=== PATIENT | female | born 1980 | race American Indian/Alaskan Native ===

== ENCOUNTER 2020-09-20 03:51 | Emergency (ER) | payer OTHER ==
[2020-09-20] MEDS ORDERED: Lidocaine 2% Viscous Solution 15 ML UD PO ONE (03:52)
[2020-09-20] MEDS ORDERED: Clindamycin HCl 150 MG Cap PO ONE (04:03)
[2020-09-20] MEDS ORDERED: Acetaminophen/HYDROcodone 325-10 MG Tab PO ONE (04:03)
[2020-09-20 04:08] VITALS: BP 147/97; PULSE 89
[2020-09-20] MEDS ORDERED: Lidocaine 2% Viscous Solution 15 ML UD ONE (04:10)
--- NOTE | 2020-09-20 04:10 | EDM.PDOC ---
ED HPI GENERAL MEDICAL PROBLEM - General Chief Complaint: ENT Problem Stated Complaint: TOOTH ACHE/INFECTION Time Seen by Provider: 09/20/20 04:06 Source of Information: Reports: Patient History Limitations: Reports: No Limitations - History of Present Illness INITIAL COMMENTS - FREE TEXT/NARRATIVE: c/o tooth pain was at clinic but doesn't have DDS appt till Monday. 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: Musculoskeletal History: Reports: None Neurological History: Reports: None Psychiatric History: Reports: Other (See Below) Other Psychiatric History: positive for THC and amphemtines previous screens Endocrine/Metabolic History: Reports: None Hematologic History: Reports: None Immunologic History: Reports: None Oncologic (Cancer) History: Reports: None Dermatologic History: Reports: Other (See Below) Other Dermatologic History: bruise right thigh - Infectious Disease History Infectious Disease History: Reports: None - Past Surgical History Head Surgeries/Procedures: Reports: None Social & Family History - Family History Family Medical History: No Pertinent Family History - Caffeine Use Caffeine Use: Reports: Coffee, Soda ED ROS ENT - Review of Systems Review Of Systems: Comprehensive ROS is negative, except as noted in HPI. ED EXAM, ENT - Physical Exam Exam: See Below Exam Limited By: Language Barrier General Appearance: Alert, WD/WN, Mild Distress, Moderate Distress, Other (crying) Ears: Hearing Grossly Normal Mouth/Throat: Dental Abcess, Dental Pain, Dental Tenderness, Other (extensive caries bilateral upper molars) Head: Atraumatic Neck: Non-Tender, Full Range of Motion Respiratory/Chest: No Respiratory Distress Cardiovascular: Regular Rate, Rhythm GI/Abdominal: Soft, Non-Tender (Female) Exam: Deferred Rectal (Female) Exam: Deferred Neurological: Alert, Oriented, Normal Cognition, Normal Gait, No Motor/Sensory Deficits Psychiatric: Tearful Skin: Warm, Dry, Normal Color Lymphatic: No Adenopathy Course - Orders/Labs/Meds Meds: Medications Discontinued Medications Generic Name Dose Route Start Last Admin Trade Name Juliet PRN Reason Stop Dose Admin Hydrocodone Bitart/Acetaminophen 1 tab 09/20/20 04:03 Brainard 325-10 Mg PO 09/20/20 04:04 ONETIME ONE Clindamycin HCl 300 mg 09/20/20 04:03 Cleocin PO 09/20/20 04:04 ONETIME ONE Departure - Departure Time of Disposition: 04:08 Disposition: Home, Self-Care 01 Condition: Good Clinical Impression: Dental abscess, Dental caries - Discharge Information Instructions: Dental Abscess, [id number] Additional Instructions: 1) avoid solid foods 2) have liquids or soft diet 3) see DENTIST next week rx given; clindamycin 300mg qid x 40 rx togo; lido viscous apply prn
== END 2020-09-20 04:17 | disposition home or self-care (01) ==
LOC: DL.ED 03:51
DX: K04.7 Periapical abscess without sinus (principal); K02.9 Dental caries, unspecified
CPT/HCPCS: 99282; 99283; A9270

== ENCOUNTER 2021-10-11 23:57 | Emergency (ER) | payer SELFPAY ==
[2021-10-12] MEDS ORDERED: MVI, Adult with Vitamin K 10 ML, Thiamine 100 MG, Folic Acid 1 MG in Lactated Ringers 1... IV ONE ×4 (00:35)
[2021-10-12 01:35] LABS: ANION GAP 19.5 mEq/L (7-13); CHLORIDE,CL 98 mmol/L (98-107); SODIUM,NA 134 mmol/L (136-145)
[2021-10-12 01:58] LABS: AMPHETAMINES,URINE POSITIVE (NEGATIVE); BARBITURATES,URINE NEGATIVE (NEGATIVE); BENZODIAZEPINE,URINE NEGATIVE (NEGATIVE); MDMA (ECSTASY), URINE POSITIVE (NEGATIVE); METHADONE,URINE NEGATIVE (NEGATIVE); METHAMPHETAMINES,URINE POSITIVE (NEGATIVE); OPIATES,URINE POSITIVE (NEGATIVE); OXYCODONE,URINE NEGATIVE (NEGATIVE); PHENCYCLIDINE,URINE NEGATIVE (NEGATIVE); TCA,URINE NEGATIVE (NEGATIVE)
[2021-10-12 03:59] VITALS: BP 128/75; PULSE 94
[2021-10-12] MEDS ORDERED: Ferrous Sulfate 325 MG Tab PO ONE (04:07)
[2021-10-12] MEDS ORDERED: cefTRIAXone 500 MG Vial IM ONE (04:08)
[2021-10-12] MEDS ORDERED: Doxycycline Monohydrate 100 MG Cap PO ONE (04:09)
[2021-10-12] MEDS ORDERED: Lidocaine 1% 30 ML SDV ONE (04:16)
[2021-10-12 04:36] LABS: CORONAVIRUS COVID-19 NAA NEGATIVE (NEGATIVE)
[2021-10-13 12:47] LABS: C.TRACHOMATIS BY TMA Negative (Negative); N.GONORRHOEAE BY TMA Negative (Negative)
== END 2021-10-12 05:40 | disposition home or self-care (01) ==
LOC: DL.ED 23:57
DX: T74.21XA Adult sexual abuse, confirmed, initial encounter (principal); N73.9 Female pelvic inflammatory disease, unspecified; D50.9 Iron deficiency anemia, unspecified; F15.10 Other stimulant abuse, uncomplicated; Z72.0 Tobacco use; Z20.822 Contact with and (suspected) exposure to COVID-19
CPT/HCPCS: 0240U; 36415; 80053; 80305; 80307; 81001; 81025; 82728; 83540; 83550; 83735; 85025; 86803; 87086; 87389; 87491; 87563; 87591; 96365; 96366; 96372; 99284; A9270; J0696; J3411; J7120; J3490

== ENCOUNTER 2021-12-15 16:13 | Emergency (ER) | payer SELFPAY ==
[2021-12-15] MEDS ORDERED: Ketorolac 30 MG/ML SDV IVPUSH ONE (17:24)
[2021-12-15] MEDS ORDERED: Ondansetron 4 MG/2 ML SDV IVPUSH ONE (17:24)
[2021-12-15] MEDS ORDERED: Sodium Chloride 0.9% 1,000 ML IV ONE (17:24)
[2021-12-15 17:57] LABS: ANION GAP 13.6 mEq/L (7-13); CHLORIDE,CL 111 mmol/L (98-107); SODIUM,NA 146 mmol/L (136-145)
[2021-12-15] MEDS ORDERED: MVI, Adult with Vitamin K 10 ML, Thiamine 100 MG, Folic Acid 1 MG in Lactated Ringers 1... IV ONE ×4 (18:07)
[2021-12-15 20:32] VITALS: BP 121/76; PULSE 98
== END 2021-12-15 21:02 | disposition left against medical advice (07) ==
LOC: DL.ED 16:13
DX: T14.8XXA Other injury of unspecified body region, initial encounter (principal); F10.129 Alcohol abuse with intoxication, unspecified; D64.9 Anemia, unspecified; Y90.7 Blood alcohol level of 200-239 mg/100 ml; Y04.0XXA Assault by unarmed brawl or fight, initial encounter
CPT/HCPCS: 36415; 36430; 70450; 80053; 80307; 82728; 83540; 83550; 83605; 83735; 84484; 85025; 86140; 86850; 86900; 86901; 86920; 86922; 96374; 96375; 99284-25; J1885; J2405; J7030; P9016

== ENCOUNTER 2021-12-18 13:42 | Emergency (ER) | payer SELFPAY | END 2021-12-18 14:18 | disposition left against medical advice (07) | LOC: DL.ED 13:42 | DX: Z53.21 Procedure and treatment not carried out due to patient leaving prior to being seen by health care provider (principal) ==

== ENCOUNTER 2022-04-21 16:11 | Emergency (ER) | payer OTHER, MEDICAID ==
[2022-04-21 16:27] VITALS: BP 144/106; PULSE 88
[2022-04-21] MEDS ORDERED: Iopamidol 612 MG/ML 100 ML Bottle IVPUSH ONE (17:42)
[2022-04-21] MEDS ORDERED: HYDROmorphone 0.5 MG/0.5 ML Syringe IVPUSH ONE (18:04)
[2022-04-21] MEDS ORDERED: Ondansetron 4 MG/2 ML SDV IVPUSH ONE (18:04)
== END 2022-04-21 19:27 | disposition left against medical advice (07) ==
LOC: DL.ED 16:11
DX: R07.81 Pleurodynia (principal); R91.8 Other nonspecific abnormal finding of lung field; V01.00XA Pedestrian on foot injured in collision with pedal cycle in nontraffic accident, initial encounter; Y92.410 Unspecified street and highway as the place of occurrence of the external cause
CPT/HCPCS: 70450; 71101-RT; 71260; 72125; 96374; 96375; 99283; 99284-25; J1170; J2405; Q9967

== ENCOUNTER 2022-08-05 15:53 | Emergency (ER) | payer MEDICAID | END 2022-08-05 16:16 | LOC: DL.ED 15:53 | DX: Z53.21 Procedure and treatment not carried out due to patient leaving prior to being seen by health care provider (principal) ==

== ENCOUNTER 2022-09-14 19:08 | Emergency (ER) | payer OTHER, MEDICAID ==
[2022-09-14] MEDS ORDERED: Acetaminophen/oxyCODONE 325-5 MG Tab PO ONE (19:09)
[2022-09-14] MEDS: Iopamidol 612 MG/ML 100 ML Bottle IVPUSH ONE (19:09)
[2022-09-14 19:53] LABS: ANION GAP 15.3 mEq/L (7-13); CHLORIDE,CL 108 mmol/L (98-107); SODIUM,NA 143 mmol/L (136-145)
[2022-09-14] MEDS: Ondansetron 4 MG/2 ML SDV IVPUSH ONE (19:53)
[2022-09-14] MEDS: HYDROmorphone 1 MG/ML Syringe IVPUSH ONE ×2 (19:53→20:53)
[2022-09-14 20:02] LABS: ESTIMATED GFR 73 mL/min (>=60)
[2022-09-14 20:06] VITALS: BP 136/93; PULSE 95
[2022-09-14] MEDS: Sodium Chloride 0.9% 1,000 ML IV ONE (20:18)
[2022-09-14 21:02] LABS: AMPHETAMINES,URINE NEGATIVE (NEGATIVE); BARBITURATES,URINE NEGATIVE (NEGATIVE); BENZODIAZEPINE,URINE NEGATIVE (NEGATIVE); MDMA (ECSTASY), URINE NEGATIVE (NEGATIVE); METHADONE,URINE NEGATIVE (NEGATIVE); METHAMPHETAMINES,URINE POSITIVE (NEGATIVE); OPIATES,URINE POSITIVE (NEGATIVE); OXYCODONE,URINE NEGATIVE (NEGATIVE); PHENCYCLIDINE,URINE NEGATIVE (NEGATIVE); TCA,URINE NEGATIVE (NEGATIVE)
[2022-09-14] MEDS: Bacitracin Oint 1 GM U/D Packet ONE (21:03)
[2022-09-14] MEDS: Acetaminophen/oxyCODONE 325-5 MG Tab ONE (21:21)
[2022-09-14] MEDS: Bacitracin Oint 1 GM U/D Packet TOP ONE (21:22)
== END 2022-09-14 21:24 | disposition home or self-care (01) ==
LOC: DL.ED 19:08
DX: S52.501A Unspecified fracture of the lower end of right radius, initial encounter for closed fracture (principal); S52.601A Unspecified fracture of lower end of right ulna, initial encounter for closed fracture; D50.9 Iron deficiency anemia, unspecified; F10.920 Alcohol use, unspecified with intoxication, uncomplicated; E87.6 Hypokalemia; E83.42 Hypomagnesemia; F15.90 Other stimulant use, unspecified, uncomplicated; V03.10XA Pedestrian on foot injured in collision with car, pick-up truck or van in traffic accident, initial encounter; Y92.410 Unspecified street and highway as the place of occurrence of the external cause
CPT/HCPCS: 36415; 70450; 71260; 72125; 73060-RT; 73090-RT; 74177; 80053; 80305-QW; 80307; 81001; 83605; 83735; 84703; 85025; 86140; 86850; 86900; 86901; 96361; 96374; 96375; 96376; 99284; 99285-25; A9270-GY; J1170; J2405; J7030; Q9967

== ENCOUNTER 2022-11-08 21:41 | Emergency (ER) | payer MEDICAID ==
[~2022-11-08 21:41] MED LIST: Sodium Chloride 0.9% 10 ML Syringe FLUSH PRN
[2022-11-08 21:50] VITALS: BP 146/102; PULSE 87
[2022-11-08 22:01] LABS: PTT,PARTIAL THROMBOPLSTIN TIME 25.7 SEC (22.0-34.0)
[2022-11-08 22:04] LABS: CHLORIDE,CL 100 mmol/L (98-107); SODIUM,NA 137 mmol/L (136-145)
[2022-11-08 22:12] LABS: ANION GAP 23.5 mEq/L (7-13)
[2022-11-08 22:17] LABS: ACETAMINOPHEN 0 ug/mL (10-30 (Therapeutic)); ESTIMATED GFR 78 mL/min (>=60)
[2022-11-08] MEDS ORDERED: 50% Dextrose in Water 50 ML Syringe IVPUSH ONE (22:35)
[2022-11-08] MEDS ORDERED: Sodium Chloride 0.9% 1,000 ML IV ONE (22:36)
[2022-11-08 22:58] LABS: AMPHETAMINES,URINE POSITIVE (NEGATIVE); BARBITURATES,URINE NEGATIVE (NEGATIVE); BENZODIAZEPINE,URINE NEGATIVE (NEGATIVE); MDMA (ECSTASY), URINE NEGATIVE (NEGATIVE); METHADONE,URINE NEGATIVE (NEGATIVE); METHAMPHETAMINES,URINE POSITIVE (NEGATIVE); OPIATES,URINE NEGATIVE (NEGATIVE); OXYCODONE,URINE NEGATIVE (NEGATIVE); PHENCYCLIDINE,URINE NEGATIVE (NEGATIVE); TCA,URINE NEGATIVE (NEGATIVE)
== END 2022-11-08 23:16 | disposition home or self-care (01) ==
LOC: DL.ED 21:41
DX: F12.10 Cannabis abuse, uncomplicated (principal); E16.2 Hypoglycemia, unspecified; F15.90 Other stimulant use, unspecified, uncomplicated
CPT/HCPCS: 36415; 70450; 80053; 80143; 80179; 80305-QW; 80307; 81025; 82140; 82150; 82947; 83605; 83690; 83735; 84484; 85025; 85610; 85730; 86140; 93005; 93010; 99284; J3490

== ENCOUNTER 2022-11-10 10:06 | Emergency (ER) | payer MEDICAID ==
[2022-11-10 10:17] VITALS: BP 149/70; PULSE 84
== END 2022-11-10 10:32 | disposition home or self-care (01) ==
LOC: DL.ED 10:06
DX: K04.7 Periapical abscess without sinus (principal); K02.9 Dental caries, unspecified; Z72.0 Tobacco use; Z88.5 Allergy status to narcotic agent
CPT/HCPCS: 99282

== ENCOUNTER 2023-02-07 12:35 | Emergency (ER) | payer MEDICAID ==
[2023-02-07 12:44] VITALS: BP 135/85; PULSE 73
[2023-02-07 13:06] LABS: BASOPHILS PERCENT AUTO 1.1 % (0.0-1.0); EOSINOPHILS PERCENT AUTO 5.5 % (1.0-3.0); HEMATOCRIT 32.8 % (37.0-47.0); LYMPHOCYTES PERCENT AUTO 21.8 % (20.5-50.1); MEAN CORPUSCULAR HEMOGLOBIN 22.9 pg (27.0-34.0); MEAN CORPUSCULAR HGB CONC 30.5 g/dL (33.0-35.0); MEAN CORPUSCULAR VOLUME 75.1 fL (80-100); MONOCYTES PERCENT AUTO 10.7 % (2-8); NEUTROPHILS PERCENT AUTO 60.9 % (42.2-75.2); PLATELET COUNT,PLT 436 10^3/uL (150-450); RED BLOOD CELL COUNT 4.37 10^6/uL (4.2-5.4); WHITE BLOOD CELL COUNT,WBC 6.6 10^3/uL (5.0-10.0)
[2023-02-07 13:26] LABS: A/G RATIO 0.76; ALBUMIN 2.8 g/dL (3.4-5.0); ANION GAP 12.8 mEq/L (7-13); BILIRUBIN TOTAL 0.1 mg/dL (0.2-1.0); CALCIUM 7.7 mg/dL (8.5-10.1); CREATININE 0.89 mg/dL (0.55-1.02); EST CRCL DRUG DOSING (CG) 77.87 mL/min; POTASSIUM,K 3.8 mmol/L (3.5-5.1); PROTEIN TOTAL,TP 6.5 g/dL (6.4-8.2)
[2023-02-07 13:51] LABS: APPEARANCE,URINE SLIGHTLY CLOUDY (CLEAR); BILIRUBIN,URINE NEGATIVE (NEGATIVE); COLOR,URINE YELLOW (YELLOW); GLUCOSE,URINE NEGATIVE (NEGATIVE); KETONES,URINE NEGATIVE (NEGATIVE); LEUKOCYTE ESTERASE,URINE TRACE (NEGATIVE); NITRITE,URINE POSITIVE (NEGATIVE); OCCULT BLOOD,URINE SMALL (NEGATIVE); PROTEIN,URINE NEGATIVE (NEGATIVE); UROBILINOGEN,URINE 0.2 mg/dL (0.2-1.0)
[2023-02-07 13:58] LABS: AMPHETAMINES,URINE NEGATIVE (NEGATIVE); BARBITURATES,URINE NEGATIVE (NEGATIVE); BENZODIAZEPINE,URINE NEGATIVE (NEGATIVE); MDMA (ECSTASY), URINE NEGATIVE (NEGATIVE); METHADONE,URINE NEGATIVE (NEGATIVE); METHAMPHETAMINES,URINE POSITIVE (NEGATIVE); OPIATES,URINE NEGATIVE (NEGATIVE); PHENCYCLIDINE,URINE NEGATIVE (NEGATIVE); TCA,URINE NEGATIVE (NEGATIVE)
[2023-02-07 13:59] LABS: OXYCODONE,URINE NEGATIVE (NEGATIVE)
[2023-02-07 14:07] LABS: WBC,URINE 20-30 /HPF (0-5/HPF)
[2023-02-07 14:08] LABS: BACTERIA,URINE MANY /HPF (0-FEW/HPF); EPITHELIAL CELLS,URINE FEW /HPF (NOT SEEN)
[2023-02-08 11:46] LABS: C.TRACHOMATIS BY TMA Negative (Negative); M GENITALIUM Positive (Negative); M GENITALIUM SOURCE Urine; N.GONORRHOEAE BY TMA Negative (Negative); SOURCE Urine
== END 2023-02-07 14:22 | disposition home or self-care (01) ==
LOC: DL.ED 12:35
DX: S02.2XXA Fracture of nasal bones, initial encounter for closed fracture (principal); S01.01XA Laceration without foreign body of scalp, initial encounter; S10.93XA Contusion of unspecified part of neck, initial encounter; N39.0 Urinary tract infection, site not specified; F15.10 Other stimulant abuse, uncomplicated; F12.10 Cannabis abuse, uncomplicated; F10.10 Alcohol abuse, uncomplicated; Z88.5 Allergy status to narcotic agent; Z87.891 Personal history of nicotine dependence; Y90.1 Blood alcohol level of 20-39 mg/100 ml; Y04.0XXA Assault by unarmed brawl or fight, initial encounter
CPT/HCPCS: 36415; 70450; 70486; 80053; 80305-QW; 80307; 81001; 81025; 85025; 87086; 87088; 87186; 87491; 87563; 87591; 99284

== ENCOUNTER 2023-03-15 22:03 | Emergency (ER) | payer MEDICAID ==
[2023-03-15 21:35] VITALS: BP 130/81; PULSE 96
[2023-03-15 22:01] LABS: BASOPHILS PERCENT AUTO 0.4 % (0.0-1.0); EOSINOPHILS PERCENT AUTO 2.4 % (1.0-3.0); HEMATOCRIT 26.7 % (37.0-47.0); HEMOGLOBIN 8.2 g/dL (12.0-16.0); LYMPHOCYTES PERCENT AUTO 29.4 % (20.5-50.1); MEAN CORPUSCULAR HGB CONC 30.7 g/dL (33.0-35.0); MONOCYTES PERCENT AUTO 10.7 % (2-8); NEUTROPHILS PERCENT AUTO 57.1 % (42.2-75.2); PLATELET COUNT,PLT 304 10^3/uL (150-450); RED BLOOD CELL COUNT 3.56 10^6/uL (4.2-5.4); WHITE BLOOD CELL COUNT,WBC 4.6 10^3/uL (5.0-10.0)
[2023-03-15 22:21] LABS: ALBUMIN 2.5 g/dL (3.4-5.0); ANION GAP 14.4 mEq/L (7-13); BILIRUBIN TOTAL 0.1 mg/dL (0.2-1.0); CALCIUM 6.8 mg/dL (8.5-10.1); CREATININE 0.81 mg/dL (0.55-1.02); EST CRCL DRUG DOSING (CG) 84.7 mL/min; POTASSIUM,K 3.4 mmol/L (3.5-5.1)
[2023-03-15 22:33] LABS: A/G RATIO 0.71
[2023-03-15] MEDS: Calcium Chloride 10% 1 GM/10 ML Syringe IVPUSH ONE (22:45)
== END 2023-03-15 23:00 | disposition home or self-care (01) ==
LOC: DL.ED 22:03
DX: T43.591A Poisoning by other antipsychotics and neuroleptics, accidental (unintentional), initial encounter (principal); F10.920 Alcohol use, unspecified with intoxication, uncomplicated; E83.51 Hypocalcemia; Z79.899 Other long term (current) drug therapy; Z88.5 Allergy status to narcotic agent
CPT/HCPCS: 36415; 80053; 80307; 85025; 93005; 93010; 96374; 99284; 99284-25; J3490

== ENCOUNTER 2023-04-20 19:31 | Emergency (ER) | payer MEDICAID ==
[2023-04-20] MEDS ORDERED: Lidocaine 2% with EPINEPHrine 1:200,000 20 ML SDV INJECT ONE (19:40)
[2023-04-20] MEDS ORDERED: Bacitracin Oint 1 GM U/D Packet TOP ONE (19:40)
[2023-04-20 20:14] VITALS: BP 152/99; PULSE 110
== END 2023-04-20 20:18 | disposition home or self-care (01) ==
LOC: DL.ED 19:31
DX: S61.211A Laceration without foreign body of left index finger without damage to nail, initial encounter (principal); R03.0 Elevated blood-pressure reading, without diagnosis of hypertension; W26.0XXA Contact with knife, initial encounter; Z88.5 Allergy status to narcotic agent; Z79.899 Other long term (current) drug therapy
CPT/HCPCS: 12001; 99282; A9270; J3490

== ENCOUNTER 2023-04-22 01:07 | Emergency (ER) | payer MEDICAID ==
[2023-04-22] MEDS ORDERED: Bacitracin/Neomycin/Polymyxin B Oint 28.4 GM Tube TOP ONE (01:33)
[2023-04-22 01:36] VITALS: BP 145/93; PULSE 82
== END 2023-04-22 01:58 | disposition home or self-care (01) ==
LOC: DL.ED 01:07
DX: S61.211S Laceration without foreign body of left index finger without damage to nail, sequela (principal); F17.210 Nicotine dependence, cigarettes, uncomplicated; Z88.5 Allergy status to narcotic agent; Y04.0XXA Assault by unarmed brawl or fight, initial encounter
CPT/HCPCS: 99284; A9270

== ENCOUNTER 2023-05-20 17:11 | Emergency (ER) | payer MEDICAID ==
[2023-05-20 17:21] VITALS: BP 146/134; PULSE 108
[2023-05-20] MEDS ORDERED: Sodium Chloride 0.9% 1,000 ML IV ONE (17:22)
[2023-05-20 17:58] LABS: APPEARANCE,URINE CLEAR (CLEAR); BILIRUBIN,URINE NEGATIVE (NEGATIVE); COLOR,URINE YELLOW (YELLOW); GLUCOSE,URINE NEGATIVE (NEGATIVE); KETONES,URINE NEGATIVE (NEGATIVE); LEUKOCYTE ESTERASE,URINE SMALL (NEGATIVE); NITRITE,URINE POSITIVE (NEGATIVE); OCCULT BLOOD,URINE TRACE-INTACT (NEGATIVE); PROTEIN,URINE NEGATIVE (NEGATIVE); UROBILINOGEN,URINE 0.2 mg/dL (0.2-1.0)
[2023-05-20 18:00] LABS: BARBITURATES,URINE NEGATIVE (NEGATIVE); BENZODIAZEPINE,URINE NEGATIVE (NEGATIVE); MDMA (ECSTASY), URINE NEGATIVE (NEGATIVE); METHADONE,URINE NEGATIVE (NEGATIVE); METHAMPHETAMINES,URINE NEGATIVE (NEGATIVE); OPIATES,URINE NEGATIVE (NEGATIVE); TCA,URINE NEGATIVE (NEGATIVE)
[2023-05-20 18:01] LABS: BASOPHILS PERCENT AUTO 0.8 % (0.0-1.0); EOSINOPHILS PERCENT AUTO 3.7 % (1.0-3.0); HEMATOCRIT 31.1 % (37.0-47.0); HEMOGLOBIN 9.6 g/dL (12.0-16.0); LYMPHOCYTES PERCENT AUTO 52.5 % (20.5-50.1); MEAN CORPUSCULAR HEMOGLOBIN 22.2 pg (27.0-34.0); MEAN CORPUSCULAR HGB CONC 30.9 g/dL (33.0-35.0); MEAN CORPUSCULAR VOLUME 71.8 fL (80-100); MONOCYTES PERCENT AUTO 12.5 % (2-8); NEUTROPHILS PERCENT AUTO 30.5 % (42.2-75.2); PLATELET COUNT,PLT 599 10^3/uL (150-450); RED BLOOD CELL COUNT 4.33 10^6/uL (4.2-5.4); WHITE BLOOD CELL COUNT,WBC 7.3 10^3/uL (5.0-10.0)
[2023-05-20 18:01] LABS: AMPHETAMINES,URINE NEGATIVE (NEGATIVE); OXYCODONE,URINE NEGATIVE (NEGATIVE); PHENCYCLIDINE,URINE NEGATIVE (NEGATIVE)
[2023-05-20 18:05] LABS: BACTERIA,URINE MODERATE /HPF (0-FEW/HPF); EPITHELIAL CELLS,URINE FEW /HPF (NOT SEEN); RBC,URINE 0-5 /HPF (0-5); WBC,URINE 0-5 /HPF (0-5/HPF)
[2023-05-20 18:11] LABS: ANION GAP 17.7 mEq/L (7-13); BILIRUBIN TOTAL 0.2 mg/dL (0.2-1.0); BUN/CREATININE RATIO 11.1 (No establ ref range); CALCIUM 7.9 mg/dL (8.5-10.1); CREATININE 0.72 mg/dL (0.55-1.02); EST CRCL DRUG DOSING (CG) 95.29 mL/min; MAGNESIUM 1.8 mg/dL (1.8-2.4); POTASSIUM,K 3.7 mmol/L (3.5-5.1); PROTEIN TOTAL,TP 7.1 g/dL (6.4-8.2)
[2023-05-20 18:12] LABS: A/G RATIO 0.73
== END 2023-05-20 18:05 ==
LOC: DL.ED 17:11
DX: F10.920 Alcohol use, unspecified with intoxication, uncomplicated (principal); Z88.5 Allergy status to narcotic agent
CPT/HCPCS: 36415; 80053; 80305; 80307; 81001; 81025; 83735; 85025; 87086; 87088; 87186; 99283; 99284; J7030

== ENCOUNTER 2024-04-09 17:24 | Emergency (ER) | payer MEDICAID ==
[2024-04-09 17:29] VITALS: BP 122/73; PULSE 79
[2024-04-09] MEDS: Ondansetron 4 MG/2 ML SDV IVPUSH ONE (17:56)
[2024-04-09 18:15] LABS: BASOPHILS PERCENT AUTO 0.1 % (0.0-1.0); HEMATOCRIT 38.3 % (37.0-47.0); HEMOGLOBIN 13.3 g/dL (12.0-16.0); LYMPHOCYTES PERCENT AUTO 6.7 % (20.5-50.1); MEAN CORPUSCULAR HEMOGLOBIN 30.9 pg (27.0-34.0); MEAN CORPUSCULAR HGB CONC 34.7 g/dL (33.0-35.0); MEAN CORPUSCULAR VOLUME 88.9 fL (80-100); MONOCYTES PERCENT AUTO 6.5 % (2-8); NEUTROPHILS PERCENT AUTO 86.7 % (42.2-75.2); PLATELET COUNT,PLT 275 10^3/uL (150-450); RED BLOOD CELL COUNT 4.31 10^6/uL (4.2-5.4); WHITE BLOOD CELL COUNT,WBC 9.9 10^3/uL (5.0-10.0)
[2024-04-09] MEDS: Ondansetron 4 MG/2 ML SDV IV ONE (18:18)
[2024-04-09] MEDS: Thiamine 200 MG in Sodium Chloride 0.9% 100 ML IV ONE (18:18)
[2024-04-09] MEDS: Sodium Chloride 0.9% 10 ML Syringe FLUSH PRN (18:21)
[2024-04-09 18:22] LABS: INR 0.9 (0.9-1.2); PROTHROMBIN TIME 9.6 SEC (9.0-12.0)
[2024-04-09] MEDS: Sodium Chloride 0.9% 1,000 ML IV ONE (18:24)
[2024-04-09] MEDS: LORazepam 2 MG/ML SDV IVPUSH ONE (18:24)
[2024-04-09] MEDS: Famotidine 20 MG/2 ML SDV IVPUSH ONE (18:24)
[2024-04-09 18:25] LABS: A/G RATIO 0.9; ALANINE AMINOTRANSFERASE,ALT 200 U/L (14-59); ALBUMIN 3.5 g/dL (3.4-5.0); ALKALINE PHOSPHATASE 64 U/L (46-116); AMYLASE 41 U/L (25-115); ANION GAP 23.6 mEq/L (7-13); ASPARTATE AMNIOTRANSFERASE,AST 178 U/L (15-37); BILIRUBIN TOTAL 1.4 mg/dL (0.2-1.0); BLOOD UREA NITROGEN,BUN 19 mg/dL (7-18); BUN/CREATININE RATIO 21.8 (No establ ref range); CARBON DIOXIDE,CO2 18 mmol/L (21-32); CHLORIDE,CL 101 mmol/L (98-107); CREATININE 0.87 mg/dL (0.55-1.02); EST CRCL DRUG DOSING (CG) 78.05 mL/min; GLUCOSE RANDOM 94 mg/dL (70-99); LIPASE 30 U/L (16-77); MAGNESIUM 1.6 mg/dL (1.8-2.4); POTASSIUM,K 3.6 mmol/L (3.5-5.1); PROTEIN TOTAL,TP 7.2 g/dL (6.4-8.2); SODIUM,NA 139 mmol/L (136-145)
[2024-04-09 18:26] LABS: ESTIMATED GFR 85 mL/min (>=60); ETHANOL BLOOD MEDICAL < 3 mg/dL (0)
[2024-04-09] MEDS: Magnesium Sulfate/Water 2 GM in Premix Bag 1 BAG IV ONE (19:07)
[2024-04-09] MEDS: Take Home: Ondansetron 4 MG Tab.DIS, 5 Tab Pack PO ONE (19:32)
[2024-04-09] MEDS: Take Home: LORazepam 1 MG Tab, 2 Tab Pack PO ONE (19:32)
== END 2024-04-09 20:05 | disposition home or self-care (01) ==
LOC: DL.ED 17:24
DX: F10.939 Alcohol use, unspecified with withdrawal, unspecified (principal); E83.42 Hypomagnesemia; Z88.5 Allergy status to narcotic agent; Z88.8 Allergy status to other drugs, medicaments and biological substances; Z79.899 Other long term (current) drug therapy
CPT/HCPCS: 36415; 80053; 80307; 82150; 83690; 83735; 85025; 85610; 96365; 96367; 96375; 99285-25; A9270-GY; J2060; J2405; J3411; J3475; J3490; J7030; Q0162

== ENCOUNTER 2024-05-02 18:01 | Emergency (ER) | payer MEDICAID, OTHER ==
[2024-05-02 18:12] VITALS: PULSE 94
== END 2024-05-02 18:09 | disposition home or self-care (01) ==
LOC: DL.ED 18:01
DX: F10.929 Alcohol use, unspecified with intoxication, unspecified (principal); Z79.899 Other long term (current) drug therapy; Z79.1 Long term (current) use of non-steroidal anti-inflammatories (NSAID); Z88.5 Allergy status to narcotic agent; V89.2XXA Person injured in unspecified motor-vehicle accident, traffic, initial encounter
CPT/HCPCS: 99284

== ENCOUNTER 2024-07-22 22:58 | Emergency (ER) | payer MEDICAID, OTHER ==
[2024-07-22 23:56] VITALS: BP 141/82; PULSE 102
[2024-07-23 00:46] LABS: BILIRUBIN,URINE MODERATE (NEGATIVE); GLUCOSE,URINE NEGATIVE (NEGATIVE); KETONES,URINE 15 (NEGATIVE); LEUKOCYTE ESTERASE,URINE NEGATIVE (NEGATIVE); NITRITE,URINE POSITIVE (NEGATIVE); OCCULT BLOOD,URINE LARGE (NEGATIVE); PH,URINE 5.5 (5.0-9.0); PROTEIN,URINE >=300 (NEGATIVE)
[2024-07-23 00:54] LABS: APPEARANCE,URINE TURBID (CLEAR); COLOR,URINE RED (YELLOW)
[2024-07-23 00:58] LABS: BACTERIA,URINE FEW /HPF (0-FEW/HPF); EPITHELIAL CELLS,URINE FEW /HPF (NOT SEEN); MUCUS,URINE FEW /LPF (NOT SEEN); RBC,URINE PACKED /HPF (0-5)
[2024-07-23] MEDS: cefTRIAXone 1 GM, Lidocaine 1% 2.1 ML IM ONE (01:31)
[2024-07-23] MEDS: Dexamethasone 4 MG/ML SDV IM ONE (01:31)
== END 2024-07-23 01:58 ==
LOC: DL.ED 22:58
DX: J06.9 Acute upper respiratory infection, unspecified (principal); B97.89 Other viral agents as the cause of diseases classified elsewhere; N39.0 Urinary tract infection, site not specified; F17.210 Nicotine dependence, cigarettes, uncomplicated; Z88.5 Allergy status to narcotic agent; Z79.899 Other long term (current) drug therapy
CPT/HCPCS: 71046; 81001; 81025; 87086; 87428-QW; 96372; 99284; J0696; J1100; J3490

== ENCOUNTER 2025-02-27 13:54 | Emergency (ER) | payer MEDICAID ==
[2025-02-27 16:07] VITALS: BP 132/101; PULSE 97
[2025-02-27] MEDS: Acetaminophen 500 MG Tab PO ONE (16:15)
== END 2025-02-27 16:19 | disposition home or self-care (01) ==
LOC: DL.ED 13:54
DX: S60.211A Contusion of right wrist, initial encounter (principal); F07.81 Postconcussional syndrome; J45.909 Unspecified asthma, uncomplicated; Z79.899 Other long term (current) drug therapy; Z88.5 Allergy status to narcotic agent; Y04.8XXA Assault by other bodily force, initial encounter
CPT/HCPCS: 70450; 72125; 81025; 99283; 99284; A9270

== ENCOUNTER 2025-02-28 11:57 | Emergency (ER) | payer MEDICAID ==
[~2025-02-28 11:57] MED LIST changes: +Ketorolac 30 MG/ML SDV ONE; -Sodium Chloride 0.9% 10 ML Syringe FLUSH PRN
[2025-02-28] MEDS: Ketorolac 30 MG/ML SDV IM ONE (12:38)
[2025-02-28] MEDS: Ondansetron 4 MG Tab.DIS PO ONE (12:38)
[2025-02-28 13:10] VITALS: BP 135/88; PULSE 80
== END 2025-02-28 13:15 | disposition home or self-care (01) ==
LOC: DL.ED 11:57
DX: F10.939 Alcohol use, unspecified with withdrawal, unspecified (principal); S09.90XD Unspecified injury of head, subsequent encounter; Z88.5 Allergy status to narcotic agent; Z88.8 Allergy status to other drugs, medicaments and biological substances; Z79.899 Other long term (current) drug therapy; X58.XXXD Exposure to other specified factors, subsequent encounter
CPT/HCPCS: 96372; 99284; A9270; J1885